=== PATIENT | female | born 1955 | race Caucasian/White ===

== ENCOUNTER 2020-05-16 11:13 | Outpatient (CLI) | payer MEDICAID ==
[~2020-05-16 11:13] MED LIST: ALBU2.5V11 NEB; AMOX1TAB64 PO; CLON0.5T PO; LEVO750T6 PO; PRED50TA PO; QUET25TA5 PO; RISP1TAB45 PO; advair
== END 2020-05-16 23:59 | disposition home or self-care (01) ==
LOC: RAD 11:13
PROVIDERS: ATTEND Chiropractor
DX: M50.31 Other cervical disc degeneration, high cervical region (principal); M48.02 Spinal stenosis, cervical region; M16.0 Bilateral primary osteoarthritis of hip; M48.56XA Collapsed vertebra, not elsewhere classified, lumbar region, initial encounter for fracture; M99.02 Segmental and somatic dysfunction of thoracic region; M99.01 Segmental and somatic dysfunction of cervical region; M99.03 Segmental and somatic dysfunction of lumbar region; M99.04 Segmental and somatic dysfunction of sacral region; M25.78 Osteophyte, vertebrae; M48.061 Spinal stenosis, lumbar region without neurogenic claudication
CPT/HCPCS: 72040; 72072; 72100; 72170